=== PATIENT | male | born 1975 | race Caucasian/White ===

== ENCOUNTER 2020-05-08 16:51 | Emergency (ER) | payer OTHER ==
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
[2020-05-08 19:32] LABS: ABSOLUTE EOSINOPHILS # (AUTO) 0.1 10^3/uL (0.0-0.6); ABSOLUTE LYMPHOCYTES (AUTO) 1.3 10^3/uL (0.5-4.7); ABSOLUTE MONOCYTES (AUTO) 0.8 10^3/uL (0.1-1.4); ABSOLUTE NEUT (AUTO) 6.6 10^3/uL (1.7-8.2); BASOPHILS % (AUTO) 0.4 % (0-2); EOSINOPHILS % (AUTO) 0.8 % (0-6); HEMOGLOBIN 14.9 g/dL (13.5-17.0); LYMPHOCYTES % (AUTO) 14.9 % (13-45); MEAN CORPUSCULAR HEMOGLOBIN 31.4 pg (27.0-33.4); MEAN CORPUSCULAR HGB CONC 34.6 g/dL (32.0-36.0); MEAN CORPUSCULAR VOLUME 91 fl (80-97); MONOCYTES % (AUTO) 8.6 % (3-13); PLATELET COUNT 289 10^3/uL (150-450); RED BLOOD COUNT 4.73 10^6/uL (4.35-5.55); RED CELL DISTRIBUTION WIDTH 12.6 % (11.5-14.0); SEGMENTED NEUTROPHILS % (AUTO) 75.3 % (42-78); TOTAL CELLS COUNTED % (AUTO) 100 %; WHITE BLOOD COUNT 8.8 10^3/uL (4.0-10.5)
[2020-05-08 19:50] LABS: BLOOD UREA NITROGEN 16 mg/dL (7-20); CALCIUM 9.5 mg/dL (8.4-10.2); CHLORIDE 105 mmol/L (98-107); GLUCOSE 109 mg/dL (75-110); POTASSIUM 4.2 mmol/L (3.6-5.0)
[2020-05-08 19:57] LABS: CARBON DIOXIDE 28 mmol/L (22-30)
[2020-05-08 20:00] LABS: ANION GAP 3 (5-19)
--- NOTE | 2020-05-08 20:34 | RADIOLOGY REPORT (SQ) ---
EXAM DESCRIPTION: CT NECK ANGIOGRAPHY WITHOUT THEN WITH IV CONTRAST, CT HEAD WITHOUT IV CONTRAST, CT HEAD ANGIOGRAPHY WITHOUT THEN WITH IV CONTRAST COMPLETED DATE/TME: 05/08/2020 19:22 (accession [id number]), 05/08/2020 19:06 (accession [id number]), 05/08/2020 19:06 (accession [id number]) CLINICAL HISTORY: 45 years, Male, WOR[employer] TECHNIQUE: Initially, noncontrast images of the brain were obtained. Subsequent postcontrast angiographic imaging with 3-D postprocessing imaging and multiplanar reformatted images of the head and neck was performed utilizing 70 mL Omnipaque 350 intravenously. NASCET criteria utilized. This exam was performed according to our departmental dose-optimization program, which includes automated exposure control, adjustment of the mA and/or kV according to patient size and/or use of iterative reconstruction technique. COMPARISON: None FINDINGS: CT HEAD WITHOUT CONTRAST: There is no acute intracranial hemorrhage, abnormal mass effect, or major vascular territorial infarction. There is no hydrocephalus. Calvarium is intact. The visualized portions of the paranasal sinuses and mastoid air cells are clear. CTA HEAD: No significant plaque formation is identified. There is no evidence of significant stenosis or aneurysm. The posterior communicating arteries are difficult to visualize and I cannot confirm an intact [place]. There is normal enhancement of the dural venous sinuses. CTA NECK: Normal-appearing aortic arch anatomy is noted. The origins of the great vessels are widely patent. Carotid and vertebral arteries are widely patent. Vertebral arteries are codominant. No discrete neck mass is identified. The visualized lung apices are clear. There is incidental mild degenerative disc disease at the C5-C6 level. IMPRESSION: No acute intracranial abnormality. No significant stenosis or evidence of cerebral aneurysm as above. TECHNICAL DOCUMENTATION: Quality ID # 436: Final reports with documentation of one or more dose reduction techniques (e.g., Automated exposure control, adjustment of the mA and/or kV according to patient size, use of iterative reconstruction technique) copyright 2011 [employer]- All Rights Reserved
--- NOTE | 2020-05-08 20:34 | RADIOLOGY REPORT (SQ) ---
EXAM DESCRIPTION: CT NECK ANGIOGRAPHY WITHOUT THEN WITH IV CONTRAST, CT HEAD WITHOUT IV CONTRAST, CT HEAD ANGIOGRAPHY WITHOUT THEN WITH IV CONTRAST COMPLETED DATE/TME: 05/08/2020 19:22 (accession [id number]), 05/08/2020 19:06 (accession [id number]), 05/08/2020 19:06 (accession [id number]) CLINICAL HISTORY: 45 years, Male, [employer] [place] [employer] TECHNIQUE: Initially, noncontrast images of the brain were obtained. Subsequent postcontrast angiographic imaging with 3-D postprocessing imaging and multiplanar reformatted images of the head and neck was performed utilizing 70 mL Omnipaque 350 intravenously. NASCET criteria utilized. This exam was performed according to our departmental dose-optimization program, which includes automated exposure control, adjustment of the mA and/or kV according to patient size and/or use of iterative reconstruction technique. COMPARISON: None FINDINGS: CT HEAD WITHOUT CONTRAST: There is no acute intracranial hemorrhage, abnormal mass effect, or major vascular territorial infarction. There is no hydrocephalus. Calvarium is intact. The visualized portions of the paranasal sinuses and mastoid air cells are clear. CTA HEAD: No significant plaque formation is identified. There is no evidence of significant stenosis or aneurysm. The posterior communicating arteries are difficult to visualize and I cannot confirm an intact [place]. There is normal enhancement of the dural venous sinuses. CTA NECK: Normal-appearing aortic arch anatomy is noted. The origins of the great vessels are widely patent. Carotid and vertebral arteries are widely patent. Vertebral arteries are codominant. No discrete neck mass is identified. The visualized lung apices are clear. There is incidental mild degenerative disc disease at the C5-C6 level. IMPRESSION: No acute intracranial abnormality. No significant stenosis or evidence of cerebral aneurysm as above. TECHNICAL DOCUMENTATION: Quality ID # 436: Final reports with documentation of one or more dose reduction techniques (e.g., Automated exposure control, adjustment of the mA and/or kV according to patient size, use of iterative reconstruction technique) copyright 2011 [employer]- All Rights Reserved
--- NOTE | 2020-05-08 20:34 | RADIOLOGY REPORT (SQ) ---
EXAM DESCRIPTION: CT NECK ANGIOGRAPHY WITHOUT THEN WITH IV CONTRAST, CT HEAD WITHOUT IV CONTRAST, CT HEAD ANGIOGRAPHY WITHOUT THEN WITH IV CONTRAST COMPLETED DATE/TME: 05/08/2020 19:22 (accession [id number]), 05/08/2020 19:06 (accession [id number]), 05/08/2020 19:06 (accession [id number]) CLINICAL HISTORY: 45 years, Male, [employer] [place] TECHNIQUE: Initially, noncontrast images of the brain were obtained. Subsequent postcontrast angiographic imaging with 3-D postprocessing imaging and multiplanar reformatted images of the head and neck was performed utilizing 70 mL Omnipaque 350 intravenously. NASCET criteria utilized. This exam was performed according to our departmental dose-optimization program, which includes automated exposure control, adjustment of the mA and/or kV according to patient size and/or use of iterative reconstruction technique. COMPARISON: None FINDINGS: CT HEAD WITHOUT CONTRAST: There is no acute intracranial hemorrhage, abnormal mass effect, or major vascular territorial infarction. There is no hydrocephalus. Calvarium is intact. The visualized portions of the paranasal sinuses and mastoid air cells are clear. CTA HEAD: No significant plaque formation is identified. There is no evidence of significant stenosis or aneurysm. The posterior communicating arteries are difficult to visualize and I cannot confirm an intact [place]. There is normal enhancement of the dural venous sinuses. CTA NECK: Normal-appearing aortic arch anatomy is noted. The origins of the great vessels are widely patent. Carotid and vertebral arteries are widely patent. Vertebral arteries are codominant. No discrete neck mass is identified. The visualized lung apices are clear. There is incidental mild degenerative disc disease at the C5-C6 level. IMPRESSION: No acute intracranial abnormality. No significant stenosis or evidence of cerebral aneurysm as above. TECHNICAL DOCUMENTATION: Quality ID # 436: Final reports with documentation of one or more dose reduction techniques (e.g., Automated exposure control, adjustment of the mA and/or kV according to patient size, use of iterative reconstruction technique) copyright 2011 [employer]- All Rights Reserved
[2020-05-08] MEDS ORDERED: HYDROMORPHONE HCL INJ/PF 2 MG/ML AMPULE IV ONE (20:35)
[2020-05-08] MEDS ORDERED: ONDANSETRON HCL INJ/PF 4 MG/2 ML SDV IV ONE (20:35)
[2020-05-08 22:22] VITALS: BP 120/76
== END 2020-05-08 22:22 | disposition home or self-care (01) ==
LOC: ER 16:51
DX: R51 Headache (principal); Z87.820 Personal history of traumatic brain injury; R05 Cough; H53.149 Visual discomfort, unspecified; M47.812 Spondylosis without myelopathy or radiculopathy, cervical region; R20.0 Anesthesia of skin; F17.200 Nicotine dependence, unspecified, uncomplicated; Z88.0 Allergy status to penicillin
CPT/HCPCS: 99284; 96374; 96375; 36415; 85025; 80048; 70450; 70496; 70498; J1170; J2405